=== PATIENT | female | born 1945 | race Caucasian/White ===

== ENCOUNTER 2024-04-30 09:54 | Outpatient (AMB) | payer MEDICARE, OTHER, SELFPAY ==
--- NOTE | 2024-04-30 10:23 | A.OFFVIS_ITS ---
Vital Signs 04/30/24 10:26 Height 5 ft 3.5 in Weight 128 lb 8.472 oz BMI 22.4 BP 120/64 Blood Pressure Location Lt brachial Position Sitting Pulse 68 Pulse Source Pulse Oximeter Pulse Oximetry (%) 98 Oxygen Delivery Method Room Air Intake Visit Reasons: Pseudogout/LM Intake Note: Patient presents for follow up on pseudogout, and also complains of back pain and bilateral foot pain, flare up. Allergies gluten Allergy (Mild, Verified 04/30/24 10:32) Fever HPI HPI Pseudogout/LM: Details: Mid back pain in the middle started this summer exacerbated with prolonged standing. She also has lower back pain. Tylenol 1000mg AM and motrin 400mg qhs R lateral foot pain and left mid foot pain when walking since the summer. Spontaneously resolves. No flares in knees for 14 months She is on gabapentin for neuropathy in feet with benefit prescribed by PCP. Review of Systems Const All systems reviewed & are unremarkable except as noted in HPI and below Physical Exam Vital Signs: Last Vital Signs Pulse 68 04/30/24 10:26 BP 120/64 04/30/24 10:26 Pulse Ox 98 04/30/24 10:26 Oxygen Delivery Method Room Air 04/30/24 10:26 BMI result Body Mass Index 22.4 Const Other: General: Comfortable CVS: RRR Respiratory: clear to auscultation bilaterally. Good respiratory effort Skin: No lesions seen MSK: Nontender joints. No synovitis present. Good range of motion of upper extremity and lower extremity. No spinous process tenderness. Good lumbar flexion. She has bony hypertrophy left midfoot. Base of right 5th metatarsal is very prominent where patient localizes pain. Assessment & Plan Assessment & Plan (1) Pseudogout: Comment: Crystal proven affecting left knee status post TKR (rare) controlled on colchicine 0.6 mg b.i.d.. In the past she required combination methotrexate and colchicine to control her symptoms. She occasionally has muscle spasms in her legs once a week, which are tolerable and resolve with stretching. Concurrent use of simvastatin 10 mg may also be contributing. Patient is unable to discern if spasms got worse since being on colchicine. We will continue colchicine at this time. Code(s): M11.20 - Other chondrocalcinosis, unspecified site Category: Medical Plan: Continue colchicine 0.6 mg b.i.d. Labs for disease and drug monitoring ordered [facility] Return to clinic in 3 months (2) Other skilled nursing (current) drug therapy: Code(s): Z79.899 - Other skilled nursing (current) drug therapy Category: Medical Plan: See above (3) Back pain: Comment: Chronic mid and lower back pain localized to spine. Unremarkable exam. History of lumbar spinal stenosis previously treated with cortisone injections (2011) with benefit. I will obtain x-rays for further evaluation. Code(s): M54.9 - Dorsalgia, unspecified Category: Medical Plan: X-rays ordered She will start doing exercises learned from PT in the past. Continue Tylenol 1000 mg in the morning. She will try Tylenol 1000 mg in the p.m. instead of ibuprofen 400 mg Return to clinic in 3 months (4) Foot pain: Comment: Suspect osteoarthritis is contributing. Code(s): M79.673 - Pain in unspecified foot Category: Medical Plan: We discussed importance of having supportive footwear. She is in need of new inserts. She will try [id number]-xbizmty inserts. Also I have recommended considering new custom insoles if [id number]-[id number] inserts are not effective in improving pain Return to clinic in 3 months Orders: Orders Alanine Aminotransferase Today M11.20 - Other chondrocalcinosis, unspecified site, M54.9 - Dorsalgia, unspecified, Z79.899 - Other skilled nursing (current) drug therapy Creatinine Today Z79.899 - Other skilled nursing (current) drug therapy XR foot LT 2V Today M79.673 - Pain in unspecified foot XR foot RT 2V Today M54.9 - Dorsalgia, unspecified, M79.673 - Pain in unspecified foot C Reactive Protein Today M11.20 - Other chondrocalcinosis, unspecified site, Z79.899 - Other terminal makeup operator (current) drug therapy Erythrocyte Sedimentation Rate Today M11.20 - Other chondrocalcinosis, unspecified site, Z79.899 - Other skilled nursing (current) drug therapy XR thoracic spine 2V Today M54.9 - Dorsalgia, unspecified XR lumbar spine 2-3V Today M54.9 - Dorsalgia, unspecified Aspartate Amino Transferase Today Z79.899 - Other skilled nursing (current) drug therapy Complete Blood Count Auto Diff Today Z79.899 - Other terminal makeup operator (current) drug therapy Coding Level of Care Code Est Pt Level 4 (03372) Complex EM visit Add On G2211 Diagnoses Pseudogout M11.20 Other terminal makeup operator (current) drug therapy Z79.899 Back pain M54.9 Foot pain M79.673
[2024-04-30 10:26] VITALS: BP 120/64; PULSE 68; O2SAT 98; BMI 22.4
== END 2024-04-30 11:11 | disposition home or self-care (01) ==
PROVIDERS: PCP Physician Assistant Medical; Visit Provider Internal Medicine Rheumatology
DX: M11.20 Other chondrocalcinosis, unspecified site (principal); Z79.899 Other long term (current) drug therapy; M54.9 Dorsalgia, unspecified; M79.673 Pain in unspecified foot
CPT/HCPCS: 99214; G2211

== ENCOUNTER → 2024-04-30 09:54 | Outpatient (BNVA) | payer MEDICARE, OTHER, SELFPAY | PROVIDERS: PCP Physician Assistant Medical; Visit Provider Internal Medicine Rheumatology | DX: M11.262 Other chondrocalcinosis, left knee (principal); M54.9 Dorsalgia, unspecified; M79.673 Pain in unspecified foot; Z79.899 Other long term (current) drug therapy | CPT/HCPCS: 99212 ==

== ENCOUNTER 2024-05-01 11:17 | Outpatient (REF) | payer MEDICARE, OTHER, SELFPAY ==
--- NOTE | ~2024-05-01 | XR_ITS ---
EXAMINATION: XR LEFT FOOT CLINICAL INFORMATION: Pain in unspecified foot M79.673. COMPARISON: None available. TECHNIQUE: AP, lateral, and oblique views of the left foot. FINDINGS: Normal bony mineralization. No fracture, dislocation, or suspicious focal bony abnormality. There is normal alignment. Minimal degenerative arthritis within the intertarsal joints, tarsometatarsal joints and first MTP joint. Normal plantar arch. Small to moderate-sized plantar calcaneal spur. Midfoot and hindfoot otherwise image normally. No soft tissue abnormalities. XR/XR foot LT 2V IMPRESSION: No acute findings left foot. Mild arthritic changes. Electronically signed by: Heath Layne MD 05/15/2024 01:24 PM [facility]
--- NOTE | ~2024-05-01 | XR_ITS ---
EXAMINATION: XR RIGHT FOOT CLINICAL INFORMATION: Pain in unspecified foot M79.673. Patient states pain in back and both feet. No known injury. COMPARISON: None available. TECHNIQUE: AP, lateral, and oblique views of the right foot. FINDINGS: Normal bony mineralization. No fracture, dislocation, or suspicious focal bony abnormality. There is normal alignment. Minimal degenerative arthritis within the intertarsal joints, tarsometatarsal joints and first MTP joint. Normal plantar arch. Small small plantar calcaneal spur. Midfoot and hindfoot otherwise image normally. No soft tissue abnormalities. XR/XR foot RT 2V IMPRESSION: No acute findings right foot. Mild arthritic changes. Electronically signed by: Heath Layne MD 05/15/2024 01:26 PM [facility]
--- NOTE | ~2024-05-01 | XR_ITS ---
EXAMINATION: XR LUMBOSACRAL SPINE CLINICAL INFORMATION: Dorsalgia, unspecified M54.9. Back pain, history of spinal stenosis. No known injury. COMPARISON: None available TECHNIQUE: Three views of the lumbosacral spine. FINDINGS: There is normal bone mineralization. Partially sacralized L5 vertebral body. There is a minimal right convex scoliosis, apex at L3-4. There is a normal lumbar lordosis. There is no fracture, compression deformity, or suspicious focal bony abnormality. There is a grade 1 likely degenerative anterolisthesis L4 on L5 measuring 7 mm. No definite pars defects. There is a 3 mm anterolisthesis of L3 on L4. Alignment is otherwise anatomic. Moderate degenerative disc changes present with relative sparing of L3-4. Degenerative hypertrophic facet changes L4-S1. Milder changes at L3-4. XR/XR lumbar spine 2-3V IMPRESSION: 1. No acute lumbar spine abnormalities. 2. Ozxc-ia-[id number] degenerative spondylosis. Electronically signed by: Heath Layne MD 05/15/2024 01:17 PM [facility]
--- NOTE | ~2024-05-01 | XR_ITS ---
EXAMINATION: XR THORACIC SPINE CLINICAL INFORMATION: Dorsalgia, unspecified M54.9. Patient states pain in back and both feet. No known injury. COMPARISON: None available. TECHNIQUE: 3 views of the thoracic spine were obtained. FINDINGS: There is normal bony mineralization. No fracture, due to compression deformity, or suspicious bone lesion. There is a trace dextroconvex scoliosis, apex at T7. There is normal kyphosis. There is normal alignment without subluxation. Mild diffuse degenerative disc and facet changes. Imaged soft tissues demonstrate cholecystectomy clips. XR/XR thoracic spine 2V IMPRESSION: No acute findings thoracic spine. Mild spondylosis. Electronically signed by: Heath Layne MD 05/15/2024 01:28 PM EST
[2024-05-01 11:29] LABS: MANUAL DIFF FLAG NO
[2024-05-01 12:07] LABS: Basophils Absolute Auto 0.1 X10*3/uL (0.0-0.2); Basophils Percent Auto 0.9 % (0-2); Eosinophils Absolute Auto 0.3 X10*3/uL (0.0-0.4); Eosinophils Percent Auto 4.7 % (0-4); Hemoglobin 12.9 g/dl (12.0-16.0); Imm Gran Abs Auto 0.01 X10*3/uL (0.00-0.03); Imm Gran Pct Auto 0.2 % (0.0-0.4); Lymphocytes Absolute Auto 2.1 X10*3/uL (1.2-4.9); Lymphocytes Percent Auto 39.7 % (20-40); Mean Corpuscular HGB Conc 32.3 g/dl (31.0-35.0); Mean Corpuscular Hemoglobin 29.9 pg (27.0-33.0); Mean Corpuscular Volume 92.8 fL (80.0-98.0); Mean Platelet Volume 10.3 fL (9.4-12.3); Monocytes Absolute Auto 0.5 X10*3/uL (0.1-1.2); Monocytes Percent Auto 10.1 % (2-11); Neutrophils Absolute Auto 2.4 x10*3/uL (2.0-8.3); Neutrophils Percent Auto 44.4 % (45-73); Platelet Count 239 X10*3/uL (160-400); Red Blood Count 4.31 X10*6/uL (4.20-5.50); Red Cell Distribution Width 13.2 % (11.0-16.0); White Blood Count 5.3 X10*3/uL (4.8-10.8)
[2024-05-01 12:45] LABS: Alanine Aminotransferase 33 U/L (0-31); Aspartate Amino Transferase 29 U/L (5-31); C Reactive Protein < 0.10 mg/dL (< or = 0.50); Estimated Glomerular Filt Rate > 60
[2024-05-01 13:01] LABS: Erythrocyte Sedimentation Rate 6 MM/HR (0-20)
== END 2024-05-01 11:18 | disposition home or self-care (01) ==
LOC: HO.XRAY 11:17
PROVIDERS: PCP Nurse Practitioner Family; Visit Provider Internal Medicine Rheumatology
DX: M79.671 Pain in right foot (principal); M79.672 Pain in left foot; M54.9 Dorsalgia, unspecified; M11.20 Other chondrocalcinosis, unspecified site; Z79.899 Other long term (current) drug therapy
CPT/HCPCS: 36415; 72070; 72100; 73620; 82565; 84450; 84460; 85025; 85652; 86140

== ENCOUNTER → 2024-05-01 11:31 | Outpatient (BNV) | payer MEDICARE, OTHER, SELFPAY | PROVIDERS: PCP Nurse Practitioner Family; Visit Provider Radiology Diagnostic Radiology | DX: M54.9 Dorsalgia, unspecified (principal); M79.672 Pain in left foot; M79.671 Pain in right foot | CPT/HCPCS: 72070; 72100; 73620 ==

== ENCOUNTER 2024-07-29 09:48 | Outpatient (REF) | payer MEDICARE, OTHER, SELFPAY ==
--- OUTSIDE RECORDS SUMMARY | 2024-07-29 13:25 | XMS_ITS | Clinical Summary ---
Author Organization [facility] Address [address] [place] [address] Care Team Providers Care Ball Holder Name Role Phone Asael Newell MD Primary Care Provider [phone] Allergies Active Allergy Reactions Criticality Noted Date [...] age to complete this topic Care Teams Ball Holder Relationship Specialty Start Date End Date Asael Newell MD [address] [place] [address] PCP - General Family Medicine 03/19/17
[2024-07-29 18:47] LABS: Alanine Aminotransferase 20 U/L (0-31); Aspartate Amino Transferase 28 U/L (5-31); C Reactive Protein < 0.04 mg/dL (< or = 0.50)
[2024-07-29 19:12] LABS: Erythrocyte Sedimentation Rate 8 MM/HR (0-20)
== END 2024-07-29 09:49 | disposition home or self-care (01) ==
LOC: HO.HKASLDS 09:48
PROVIDERS: PCP Nurse Practitioner Family; Visit Provider Internal Medicine Rheumatology
DX: R74.01 Elevation of levels of liver transaminase levels (principal); M11.20 Other chondrocalcinosis, unspecified site; Z79.899 Other long term (current) drug therapy; M47.814 Spondylosis without myelopathy or radiculopathy, thoracic region; M47.816 Spondylosis without myelopathy or radiculopathy, lumbar region
CPT/HCPCS: 36415; 84450; 84460; 85652; 86140; 99212

== ENCOUNTER 2024-07-29 09:48 | Outpatient (AMB) | payer MEDICARE, OTHER, SELFPAY ==
--- NOTE | 2024-07-29 09:58 | MHC.OFFVIS ---
Vital Signs 07/29/24 10:00 Height 5 ft 4.3 in Weight 119 lb 11.376 oz BMI 20.4 BP 118/76 Blood Pressure Location Lt brachial Position Sitting Pulse 83 Pulse Source Pulse Oximeter Pulse Oximetry (%) 100 Oxygen Delivery Method Room Air Intake Visit Reasons: Follow up 3mo Intake Note: Pt presents today for a Pseudogout follow up. Living Supervisor Services: Living Supervisor Offered & Declined Allergies gluten Allergy (Mild, Verified 07/29/24 10:01) Fever HPI HPI Follow up 3mo: Details: She is taking tumeric 500mg daily for the last 3 weeks. She reduced her dose from 1000mg daily. She has more pressure behind left knee. She has not been compliant with exercise routine for back strengthening and neck strengthening. She stopped taking Tylenol since last visit due to mild transaminitis on labs. Review of Systems Const All systems reviewed & are unremarkable except as noted in HPI and below Physical Exam Vital Signs: Last Vital Signs Pulse 83 07/29/24 10:00 BP 118/76 07/29/24 10:00 Pulse Ox 100 07/29/24 10:00 Oxygen Delivery Method Room Air 07/29/24 10:00 BMI result Body Mass Index 20.4 Const Other: General: Comfortable CVS: RRR Respiratory: clear to auscultation bilaterally. Good respiratory effort Skin: No lesions seen MSK: Nontender joints. No synovitis present. Left popliteal cyst palpated. Good range of motion of upper extremity and lower extremity. Assessment & Plan Assessment & Plan (1) Pseudogout: Comment: She has developed left Foley's cyst. Coincidentally she decreased her turmeric dose when it occurred. Crystal proven affecting left knee status post TKR (rare) controlled on colchicine 0.6 mg b.i.d. In the past she required combination methotrexate and colchicine to control her symptoms. She occasionally has muscle spasms in her legs once a week, which are tolerable and resolve with stretching. Concurrent use of simvastatin 10 mg may also be contributing. Patient is unable to discern if spasms got worse since being on colchicine. We will continue colchicine at this time. Code(s): M11.20 - Other chondrocalcinosis, unspecified site Category: Medical Plan: Discussed conservative management. She will apply diclofenac gel and ice knee twice a day. She will increase turmeric to a 1000 mg daily Continue colchicine 0.6 mg b.i.d. Labs for drug monitoring on colchicine up-to-date from 05/2023 Return to clinic in 3 months (2) Transaminitis: Comment: Mild elevation ALT. She has been avoiding Tylenol. Code(s): R74.01 - Elevation of levels of liver transaminase levels Category: Medical Plan: I am rechecking liver enzymes this visit (3) Lumbar spondylosis: Comment: Jima-gk-nqyifmlp on x-ray. Discussed importance of compliance with exercise routine for back strengthening Code(s): M47.816 - Spondylosis without myelopathy or radiculopathy, lumbar region Category: Medical Plan: She will resume exercises learned from PT in the past. She declined PT this visit Return to clinic in 3 months (4) Thoracic spondylosis: Comment: Mild on x-ray. Code(s): M47.814 - Spondylosis without myelopathy or radiculopathy, thoracic region Category: Medical Plan: She will resume exercises learned from PT in the past for back strengthening She declined PT this visit Return to clinic in 3 months Orders: Orders Erythrocyte Sedimentation Rate Today Z79.899 - Other correction (current) drug therapy Alanine Aminotransferase Today R74.01 - Elevation of levels of liver transaminase levels Aspartate Amino Transferase Today R74.01 - Elevation of levels of liver transaminase levels C Reactive Protein Today M11.20 - Other chondrocalcinosis, unspecified site, Z79.899 - Other termite renewal inspector (current) drug therapy Coding Level of Care Code Est Pt Level 4 (88369) Complex EM visit Add On G2211 Diagnoses Pseudogout M11.20 Transaminitis R74.01 Lumbar spondylosis M47.816 Thoracic spondylosis M47.814
[2024-07-29 10:00] VITALS: BP 118/76; PULSE 83; O2SAT 100; BMI 20.4
--- OUTSIDE RECORDS SUMMARY | 2024-07-29 11:18 | XMS_ITS | Clinical Summary ---
Author Organization [facility] Address [address] [place] [address] Care Team Providers Care Medical Underwriter Name Role Phone Asael Newell MD Primary Care Provider [phone] Allergies Active Allergy Reactions Criticality Noted Date Comments Gluten 10/16/2017 Medications Medication Sig Dispensed Refills Start Date End Date Status gabapentin (NEURONTIN) 100 MG capsule 0 08/31/2017 Active simvastatin (ZOCOR) tablet 10 mg 0 08/04/2017 Active amoxicillin (AMOXIL) 500 MG tablet Take 4 tabs 1 hour prior to dental procedure 20 tablet 3 10/22/2018 Active colchicine 0.6 MG tablet 0 05/10/2021 Active Active Problems Problem Noted Date Diagnosed Date Pseudogout of left knee 01/11/2021 Knee stiffness, left 10/22/2018 Family History Medical History Relation Name Comments Cancer Brother Diabetes Mother Relation Name Status Comments Brother Mother Social History Tobacco Use Types Packs/Day Years Used Date Smoking Tobacco: Former Smokeless Tobacco: Never Alcohol Use Standard Drinks/Week Comments Never 0 (1 standard drink = 0.6 oz pur e alcohol) Sex and Gender Information Value Date Recorded Sex Assigned at Not on file Gender Identity Not on file Sexual Orientation Not on file Job Start Date Occupation Industry Not on file Not on file Not on file Last Filed Vital Signs Vital Sign Reading Time Taken Comments Blood Pressure - - Pulse - - Temperature - - Respiratory Rate - - Oxygen Saturation - - Inhaled Oxygen Concentration - - Weight 59 kg (130 lb) 01/19/2021 1:05 PM EDT Height 160 cm (5' 3 ) 01/19/2021 1:05 PM EDT Body Mass Index 23.03 01/19/2021 1:05 PM EDT Plan of Treatment Health Maintenance Due Date Last Done Comments Hepatitis C Screening 1945 COVID-19 Vaccine (#1) 1947 Depression Screening 1959 Preventative Health Evaluation 1965 DTap / Tdap / Td (1 - Tdap) 1966 Shingrix-Zoster Vaccine (1 of 2) 1997 Fall Risk Assessment 2012 Osteoporosis Screening (DEXA Scan) 2012 Pneumococcal Vaccine (1 of 1 - PCV) 2012 RSV Adult > 60+ Yrs or Pregn ant (1 - 1-dose 75+ series) 2022 Influenza Vaccine (#1) 2024 Hepatitis B Vaccines Aged Out No long er eligible based on patient's age to complete this topic RSV Ped < 20 months Aged Out No longe r eligible based on patient's age to complete this topic Care Teams Medical Underwriter Relationship Specialty Start Date End Date Asael Newell MD [address] [place] [address] PCP - General Family Medicine 03/19/17
== END 2024-07-29 10:29 | disposition home or self-care (01) ==
PROVIDERS: PCP Nurse Practitioner Family; Visit Provider Internal Medicine Rheumatology
DX: M11.20 Other chondrocalcinosis, unspecified site (principal); R74.01 Elevation of levels of liver transaminase levels; M47.816 Spondylosis without myelopathy or radiculopathy, lumbar region; M47.814 Spondylosis without myelopathy or radiculopathy, thoracic region
CPT/HCPCS: 99214; G2211

== ENCOUNTER 2024-11-12 11:05 | Outpatient (REF) | payer MEDICARE, OTHER, SELFPAY ==
--- OUTSIDE RECORDS SUMMARY | 2024-11-12 12:52 | XMS_ITS | Clinical Summary ---
Author Organization Patient Business Ser [facility] Address [address] [place] [address] Care Team Providers Care Pin Pusher Name Role Phone Asael Newell DO Primary Care Provider [phone] Surgical History Surgery Date Site/Laterality Comments JOINT REPLACEMENT PROCEDURE:JOINT REPLACEMENT SECTION PROCEDURE: SECTION CHOLECYSTECTOMY PROCEDURE:CHOLECYSTECTOMY KNEE SURGERY PROCEDURE:KNEE SURGERY Medical History Medical History Date Comments Arthritis DX:Arthritis Family History Medical History Relation Name Comments Cancer Brother Diabetes Mother Relation Name Status Comments Brother Mother Social History Tobacco Use Types Packs/Day Years Used Date Smoking Tobacco: Former Smokeless Tobacco: Never Alcohol Use Standard Drinks/Week Comments Never 0 (1 standard drink = 0.6 oz pur e alcohol) Comments Unknown Sex and Gender Information Value Date Recorded Sex Assigned at Female 01/15/2021 3:55 PM EDT Legal Sex Female 10:36 AM EDT Gender Identity Female 01/15/2021 3:55 PM EDT Sexual Orientation Straight 01/15/2021 3: 55 PM EDT Obstetrics History Plan of Treatment Health Maintenance Due Date Last Done Comments DTaP,Tdap,and Td Vaccines (1 - Tdap) 1966 Pneumococcal Vaccine: 50+ Ye ars (1 of 1 - PCV) 1997 Zoster Vaccines (1 of 2) 1997 Depression Screening 01/08/2021 Falls Risk Assessment 01/08/2021 Hepatitis C Screening 01/08/2021 Osteoporosis Screening (Bone Density Screening) 01/08/2021 Social Influencers of Health Screening 01/08/2021 RSV Immunization Adult Patie nts (1 - 1-dose 75+ series) 2022 COVID-19 Vaccine (2023-2 5 season) 2024 Influenza Vaccine (Season Ended) 2025 HIB Vaccines Aged Out No longer eligi ble based on patient's age to complete this topic HPV Vaccines Aged Out No longer eligi ble based on patient's age to complete this topic Hepatitis A Vaccines Aged Out No long er eligible based on patient's age to complete this topic Hepatitis B Vaccines Aged Out No long er eligible based on patient's age to complete this topic IPV Vaccines Aged Out No longer eligi ble based on patient's age to complete this topic MMR Vaccines Aged Out No longer eligi ble based on patient's age to complete this topic Meningococcal ACWY Vaccine Aged Out N o longer eligible based on patient's age to complete this topic Meningococcal B Vaccine Aged Out No l onger eligible based on patient's age to complete this topic RSV Immunization Patients Un isak 20 months Aged Out No longer eligible b ased on patient's age to complete this topic Varicella Vaccines Aged Out No longer eligible based on patient's age to complete this topic Care Teams Pin Pusher Relationship Specialty Start Date End Date Asael Newell DO [address] [place] [address] PCP - General Family Medicine 03/19/17
[2024-11-12 18:17] LABS: Alanine Aminotransferase 19 U/L (0-31); Aspartate Amino Transferase 29 U/L (5-31); Estimated Glomerular Filt Rate > 60
[2024-11-12 18:19] LABS: Baso%MD 1.2 %; Eos%MD 9.7 %; Hematocrit 39.9 % (37.0-47.0); Hemoglobin 12.7 g/dl (12.0-16.0); IG%MD 0.2 %; Lymph%MD 35.1 %; Mean Corpuscular HGB Conc 31.8 g/dl (31.0-35.0); Mean Corpuscular Hemoglobin 30.1 pg (27.0-33.0); Mean Corpuscular Volume 94.5 fL (80.0-98.0); Mean Platelet Volume 10.8 fL (9.4-12.3); Mono%MD 8.9 %; Neut%MD 44.9 %; Platelet Count 219 X10*3/uL (160-400); Red Blood Count 4.22 X10*6/uL (4.20-5.50); Red Cell Distribution Width 14.1 % (11.0-16.0); White Blood Count 5.2 X10*3/uL (4.8-10.8)
[2024-11-12 19:12] LABS: Atypical Lymph Absolute Manual 0.1 x10*3/uL; Atypical Lymphs Percent Manual 1 % (0-6); Band Neutrophils Percent 0 % (3-5); Eosinophils Absolute Manual 0.2 X10*3/uL (0.0-0.4); Eosinophils Percent Manual 4 % (0-4); Lymphocytes Absolute Manual 1.8 X10*3/uL (1.2-4.9); Lymphocytes Percent Manual 35 % (20-40); Monocytes Absolute Manual 0.5 X10*3/uL (0.1-1.2); Monocytes Percent Manual 10 % (2-11); Neutrophils Absolute Manual 2.6 X10*3/uL (2.0-8.3); Neutrophils Percent Manual 50 % (45-73)
[2024-11-12 19:13] LABS: Large Platelet PRESENT; Platelet Estimate NORMAL (NORMAL); Platelet Morphology Comment NOTED; RBC Morphology NORMAL
== END 2024-11-12 11:06 | disposition home or self-care (01) ==
LOC: HO.HKASLDS 11:05
PROVIDERS: Visit Provider Internal Medicine Rheumatology
DX: M11.20 Other chondrocalcinosis, unspecified site (principal)
CPT/HCPCS: 36415; 82565; 84450; 84460; 85007; 85027

== ENCOUNTER 2024-11-25 09:41 | Outpatient (AMB) | payer MEDICARE, OTHER, SELFPAY ==
[2024-11-25 09:46] VITALS: BP 100/80; PULSE 69; O2SAT 96; BMI 22.0
--- NOTE | 2024-11-25 09:46 | MHC.OFFVIS ---
Vital Signs 11/25/24 09:46 Height 5 ft 4.3 in Weight 129 lb 2 oz BMI 22.0 BP 100/80 Blood Pressure Location Lt brachial Position Sitting Pulse 69 Pulse Source Pulse Oximeter Pulse Oximetry (%) 96 Oxygen Delivery Method Room Air Intake Visit Reasons: 3 months Intake Note: Patient presents for follow up on pseudo gout, and also complains of back pain and bilateral foot pain, flare up. Allergies gluten Allergy (Mild, Verified 11/25/24 09:46) Fever HPI HPI 3 months: Details: In the begining of October she had a few days of lethargy. Resolved. She resumed exerices. Walks up to 45 min. Strengthening mostly every day. Knees feel good. Hard to write. She has a sharp pain volar wrist, especially with writing. Physical Exam Vital Signs: Last Vital Signs Pulse 69 11/25/24 09:46 BP 100/80 11/25/24 09:46 Pulse Ox 96 11/25/24 09:46 Oxygen Delivery Method Room Air 11/25/24 09:46 BMI result Body Mass Index 22.0 Const Other: General: Comfortable CVS: RRR Respiratory: clear to auscultation bilaterally. Good respiratory effort Skin: No lesions seen MSK: She has volar right cyst on ulnar side of wrist. Nontender joints. No synovitis present. Nor range of motion of upper extremity and lower extremity. Assessment & Plan Assessment & Plan (1) Pseudogout: Comment: Controlled on colchicine. Crystal proven affecting left knee status post TKR (rare) controlled on colchicine 0.6 mg b.i.d. In the past she required combination methotrexate and colchicine to control her symptoms. She occasionally has muscle spasms in her legs once a week, which are tolerable and resolve with stretching. Concurrent use of simvastatin 10 mg may also be contributing. Code(s): M11.20 - Other chondrocalcinosis, unspecified site Category: Medical Plan: Continue colchicine 0.6 mg b.i.d. She uses turmeric a 1000 mg daily Labs for drug monitoring on colchicine up-to-date from 10/2024 Return to clinic in 3 months (2) Transaminitis: Comment: Mild elevation ALT 04/2024. She has been avoiding Tylenol. Resolved on recent labs Code(s): R74.01 - Elevation of levels of liver transaminase levels Category: Medical Plan: No further workup is indicated (3) Carpal tunnel syndrome, right: Comment: Clinical diagnosis with volar cyst likely applying pressure on median nerve. We discussed conservative management. Code(s): G56.01 - Carpal tunnel syndrome, right upper limb Category: Medical Plan: She will resume OT exercises learned in the past If symptoms do not improve with home exercise program, I will formally order OT and hand surgery referral Avoiding cock-up wrist brace at this time as it may worsen her symptoms with the current cyst present on her wrist likely applying pressure on median nerve contributing to her symptoms Return to clinic in 3 months Coding Level of Care Code Est Pt Level 4 (40448) Complex EM visit Add On G2211 Diagnoses Pseudogout M11.20 Transaminitis R74.01 Carpal tunnel syndrome, right G56.01
--- OUTSIDE RECORDS SUMMARY | 2024-11-25 10:28 | XMS_ITS | Clinical Summary ---
Author Organization Patient Business Ser [facility] Address [address] [place] [address] Care Team Providers Care Advertising Director Name Role Phone Asael Newell DO Primary Care Provider [phone] Surgical History Surgery Date Site/Laterality Comments JOINT [...] - 1-dose 75+ series) 2022 COVID-19 Vaccine ( - 2023-2 5 season) 2024 Influenza Vaccine (#1) 2025 HIB Vaccines Aged Out No longer [...] age to complete this topic Care Teams Advertising Director Relationship Specialty Start Date End Date Asael Newell DO [address] [place] [address] PCP - General Family Medicine 03/19/17
--- OUTSIDE RECORDS SUMMARY | 2024-11-25 10:28 | XMS_ITS | Clinical Summary ---
Author Organization [facility] Address [address] [place] [address] Care Team Providers Care Life Insurance Salesperson Name Role Phone Asael Newell MD Primary Care Provider [phone] Allergies Active Allergy Reactions Criticality Noted Date [...] - 1-dose 75+ series) 2022 Influenza Vaccine (Season Ended) 2025 Hepatitis B Vaccines Aged Out No long er eligible based on patient's age to complete this topic RSV Ped < 20 months Aged Out No longe r eligible based on patient's age to complete this topic Care Teams Life Insurance Salesperson Relationship Specialty Start Date End Date Asael Newell MD [address] [place] [address] PCP - General Family Medicine 03/19/17
== END 2024-11-25 10:13 | disposition home or self-care (01) ==
PROVIDERS: PCP Nurse Practitioner Family; Visit Provider Internal Medicine Rheumatology
DX: M11.20 Other chondrocalcinosis, unspecified site (principal); R74.01 Elevation of levels of liver transaminase levels; G56.01 Carpal tunnel syndrome, right upper limb
CPT/HCPCS: 99214; G2211

== ENCOUNTER → 2024-11-25 09:41 | Outpatient (BNVA) | payer MEDICARE, OTHER, SELFPAY | PROVIDERS: PCP Nurse Practitioner Family; Visit Provider Internal Medicine Rheumatology | DX: M11.262 Other chondrocalcinosis, left knee (principal); Z96.652 Presence of left artificial knee joint; M11.20 Other chondrocalcinosis, unspecified site; M54.9 Dorsalgia, unspecified; M79.672 Pain in left foot; M79.671 Pain in right foot; G56.01 Carpal tunnel syndrome, right upper limb; Z79.899 Other long term (current) drug therapy | CPT/HCPCS: 99212 ==

== ENCOUNTER 2025-02-25 09:21 | Outpatient (REF) | payer MEDICARE, OTHER, SELFPAY ==
[2025-02-25 13:06] LABS: MANUAL DIFF FLAG NO
[2025-02-25 13:11] LABS: Hematocrit 39.1 % (37.0-47.0); Hemoglobin 13.0 g/dl (12.0-16.0); Imm Gran Abs Auto 0.01 X10*3/uL (0.00-0.03); Imm Gran Pct Auto 0.2 % (0.0-0.4); Lymphocytes Absolute Auto 1.7 X10*3/uL (1.2-4.9); Mean Corpuscular HGB Conc 33.2 g/dl (31.0-35.0); Mean Corpuscular Hemoglobin 30.4 pg (27.0-33.0); Mean Corpuscular Volume 91.6 fL (80.0-98.0); NRBC Abs Auto 0.000 X10*3/uL (0.0-0.012); NRBC Pct Auto 0.0 /100WBC (0.0-0.2); Platelet Count 220 X10*3/uL (160-400); Red Blood Count 4.27 X10*6/uL (4.20-5.50); White Blood Count 5.3 X10*3/uL (4.8-10.8)
[2025-02-25 13:25] LABS: Alanine Aminotransferase 22 U/L (0-31); Aspartate Amino Transferase 28 U/L (5-31); Estimated Glomerular Filt Rate > 60
== END 2025-02-25 09:22 | disposition home or self-care (01) ==
LOC: HO.HKASLDS 09:21
PROVIDERS: PCP Nurse Practitioner Family; Visit Provider Internal Medicine Rheumatology
DX: M11.262 Other chondrocalcinosis, left knee (principal); G56.01 Carpal tunnel syndrome, right upper limb; S39.012A Strain of muscle, fascia and tendon of lower back, initial encounter; G89.29 Other chronic pain; Z51.81 Encounter for therapeutic drug level monitoring; Z79.899 Other long term (current) drug therapy
CPT/HCPCS: 36415; 82565; 84450; 84460; 85025; 99212

== ENCOUNTER 2025-02-25 09:21 | Outpatient (AMB) | payer MEDICARE, OTHER, SELFPAY ==
[2025-02-25 09:25] VITALS: BP 90/70; PULSE 76; O2SAT 99; BMI 22.3
--- NOTE | 2025-02-25 09:25 | MHC.OFFVIS ---
Vital Signs 02/25/25 09:25 Height 5 ft 4.3 in Weight 131 lb 6.328 oz BMI 22.3 BP 90/70 Blood Pressure Location Rt brachial Position Sitting Pulse 76 Pulse Source Pulse Oximeter Pulse Oximetry (%) 99 Oxygen Delivery Method Room Air Intake Visit Reasons: 3 Months Intake Note: Patient presents for follow up on pseudo gout, Accompanied by: Self / Same As Patient Allergies gluten Allergy (Mild, Verified 02/25/25 09:26) Fever HPI HPI 3 Months: Details: She denies having any flares of joint swelling. It has been 2 years since her last flare. She has been experiencing worsening back pain. After last visit she restarted PT exercises for a month with benefit. She has not been compliant with her exercises from PT in the past. She has been using heat with benefit. Physical Exam Vital Signs: Last Vital Signs Pulse 76 02/25/25 09:25 BP 90/70 02/25/25 09:25 Pulse Ox 99 02/25/25 09:25 Oxygen Delivery Method Room Air 02/25/25 09:25 BMI result Body Mass Index 22.3 Const Other: General: Comfortable CVS: RRR Respiratory: clear to auscultation bilaterally. Good respiratory effort Skin: No lesions seen MSK: Nontender joints. No synovitis present. Nor range of motion of upper extremity and lower extremity. Mild left suprapatellar effusion. Tender to palpate lower lumbar paraspinal muscles. No spinous process tenderness. Good lumbar flexion. Assessment & Plan Assessment & Plan (1) Pseudogout: Comment: Controlled on colchicine. Crystal proven affecting left knee status post TKR (rare) controlled on colchicine 0.6 mg b.i.d. In the past she required combination methotrexate and colchicine to control her symptoms. She occasionally has muscle spasms in her legs once a week, which are tolerable and resolve with stretching. Concurrent use of simvastatin 10 mg may also be contributing. Code(s): M11.20 - Other chondrocalcinosis, unspecified site Category: Medical Plan: Continue colchicine 0.6 mg b.i.d. She uses turmeric a 1000 mg daily Labs for drug monitoring on colchicine ordered Return to clinic in 6 months (2) Carpal tunnel syndrome, right: Comment: Clinical diagnosis with volar cyst likely applying pressure on median nerve. Not active. Code(s): G56.01 - Carpal tunnel syndrome, right upper limb Category: Medical Plan: Monitor clinically (3) Back pain: Comment: Chronic due to myofascial strain. We discussed conservative management. History of lumbar spinal stenosis previously treated with cortisone injections (2011) with benefit. Code(s): M54.9 - Dorsalgia, unspecified Category: Medical Qualifiers: Back pain location: low back pain Chronicity: chronic Back pain laterality: bilateral Sciatica presence: without sciatica Qualified Code(s): M54.50 - Low back pain, unspecified; G89.29 - Other chronic pain Plan: She will apply heat to back daily Resume exercises learned from PT in the past daily Apply lidocaine patch to affected area as needed Return to clinic in 6 months or sooner if needed Orders: Orders Alanine Aminotransferase Today Z79.899 - Other parts counterman (current) drug therapy Creatinine Today Z79.899 - Other residential (current) drug therapy Complete Blood Count Auto Diff Today Z79.899 - Other residential (current) drug therapy Aspartate Amino Transferase Today Z79.899 - Other residential (current) drug therapy Medications: Refilled colchicine 0.6 mg PO BID 180 tabs 1RF Coding Level of Care Code Est Pt Level 4 (06583) Complex EM visit Add On G2211 Diagnoses Pseudogout M11.20 Carpal tunnel syndrome, right G56.01 Chronic bilateral low back pain without sciatica M54.50; G89.29 Back pain location: low back pain Chronicity: chronic Back pain laterality: bilateral Sciatica presence: without sciatica
--- OUTSIDE RECORDS SUMMARY | 2025-02-25 10:11 | XMS_ITS | Clinical Summary ---
Author Organization [facility] Address [address] [place] [address] Care Team Providers Care Radial Drill Press Set Up Operator Name Role Phone Asael Newell MD Primary Care Provider [phone] Allergies Active Allergy Reactions Criticality Noted Date [...] 1-dose 75+ series) 2022 Influenza Vaccine (#1) 2025 Hepatitis B Vaccines Aged Out No long er eligible based on patient's age to complete this topic RSV Ped < 20 months Aged Out No longe r eligible based on patient's age to complete this topic Care Teams Radial Drill Press Set Up Operator Relationship Specialty Start Date End Date Asael Newell MD [address] [place] [address] PCP - General Family Medicine 03/19/17
--- OUTSIDE RECORDS SUMMARY | 2025-02-25 10:11 | XMS_ITS | Clinical Summary ---
Author Organization Patient Business Ser Formerly named [facility] Address [address] [place] [address] Care Team Providers Care Ticket Dispatcher Name Role Phone Asael Newell DO Primary Care Provider Surgical History Surgery Date Site/Laterality Comments JOINT [...] 1997 Zoster Vaccines (1 of 2) 1997 Falls Risk Assessment 01/08/2021 Hepatitis C Screening 01/08/2021 Osteoporosis Screening (Bone Density Screening) 01/08/2021 Social Influencers of Health Screening 01/08/2021 RSV Immunization Adult Patie nts (1 - 1-dose 75+ series) 2022 Depression Screening 05/28/2024 COVID-19 Vaccine ( - 2023-2 5 season) 2025 Influenza Vaccine (#1) 2025 HIB Vaccines Aged [...] age to complete this topic Care Teams Ticket Dispatcher Relationship Specialty Start Date End Date Asael Newell DO [address] [place] [address] PCP - General Family Medicine 03/19/17
== END 2025-02-25 09:46 | disposition home or self-care (01) ==
LOC: HO.RHES 09:22
PROVIDERS: PCP Nurse Practitioner Family; Visit Provider Internal Medicine Rheumatology
DX: M11.20 Other chondrocalcinosis, unspecified site (principal); G56.01 Carpal tunnel syndrome, right upper limb; M54.50 Low back pain, unspecified; G89.29 Other chronic pain
CPT/HCPCS: 99214; G2211